=== PATIENT | female | born 1955 | race Caucasian/White ===

== ENCOUNTER 2017-05-24 13:07 | Emergency (ER) | payer OTHER ==
[~2017-05-24] VITALS: Ht 167.6 cm; Wt 76.2 kg
[2017-05-24 13:20] VITALS: Ht 167.6 cm; Wt 76.2 kg
[2017-05-24 15:56] VITALS: BP 106/59
== END 2017-05-24 15:56 | disposition home or self-care (01) ==
LOC: ED 13:07
DX: J02.9 Acute pharyngitis, unspecified (principal)
CPT/HCPCS: J0561; J1885

== ENCOUNTER 2018-09-05 17:32 | Emergency (ER) | payer OTHER ==
[~2018-09-05] VITALS: Ht 160 cm; Wt 79.8 kg
[2018-09-05 17:49] VITALS: BP 122/74; Ht 160 cm; Wt 79.8 kg
== END 2018-09-05 19:35 | disposition left against medical advice (07) ==
LOC: ED 17:32
DX: Z53.21 Procedure and treatment not carried out due to patient leaving prior to being seen by health care provider (principal)